=== PATIENT | female | born 1990 | race Caucasian/White ===

== ENCOUNTER 2019-07-26 12:22 | Emergency (ER) | payer OTHER, SELFPAY ==
--- NOTE | 2019-07-26 12:44 | ED.GENADULT ---
HPI - General Adult General Chief complaint: Extremity Injury, Lower Stated complaint: R/foot pain Time Seen by Provider: 07/26/19 12:55 Source: patient Mode of arrival: ambulatory Limitations: no limitations History of Present Illness HPI narrative: 28-year-old female patient presents to the [facility] with complaints of right foot pain. Patient states she does have chronic issues with her feet including neuropathy and plantar fasciitis. Patient states that about noon today she was bending down putting her son shoes on when she started feeling a burning pain to the right sole of the foot with some pulling. Patient states that she did take some Tylenol for the pain. Patient states that she does normally does wear inserts for her plantar fasciitis but did not wear them today. Patient states that she does feel like there is some pulling going up the calf as well. Patient states that she thinks that this is most likely her plantar fasciitis but is needing a work note for work today. Related Data Home Medications Medication Instructions Recorded Confirmed No Home Medications 07/26/19 07/26/19 Allergies Allergy/AdvReac Type Severity Reaction Status Date / Time No Known Allergies Allergy Verified 07/26/19 12:54 Review of Systems Review of Systems: Narrative: CONSTITUTIONAL: Denies fever, chills, or sweats. EYES: Denies visual changes, redness, or discharge. ENT: Denies rhinorrhea, congestion, sore throat, or otalgia. CARDIOVASCULAR: Denies chest pain, palpitations, or edema. RESPIRATORY: Denies cough or dyspnea. GASTROINTESTINAL: Denies abdominal pain, nausea, vomiting, or diarrhea. GENITOURINARY: Denies dysuria or hematuria. SKIN: Denies rash or itching. MUSCULOSKELETAL: Denies back pain, joint pain, or myalgia. Positive right foot pain NEUROLOGIC: Denies headache, numbness, or weakness. PSYCHIATRIC: Denies anxiety or depression. PMFSH Comments At the time of my signature I agree with nursing past medical history, surgical, social, and family history. There is no relevant family history pertinent to the presenting complaint. Exam Narrative: Exam Narrative: GENERAL: Well-appearing, well-nourished, and in no acute distress. HEAD: Normocephalic, atraumatic. EYES: PERRLA and EOMI. ENT: Nares clear, no rhinorrhea or epistaxis. Mucous membranes moist. NECK: Supple. No lymphadenopathy CHEST: Clear to auscultation. No respiratory distress. HEART: Regular rate and rhythm. No murmur heard. Normal peripheral pulses. ABDOMEN: Soft, nontender, nondistended, normal active bowel sounds. EXTREMITIES: Patient able to bear weight and ambulate but has increase in pain to the sole of the right foot. No surface trauma, since, erythema, lesions, ulcers or break in skin integrity. The R foot is without obvious asymmetry or deformity when compared to the L foot. No bony step-off, tender to palpation over the middle sole and heel. Normal plantar/dorsiflexion, inversion/eversion. Distal motor and neurovascular status are intact SKIN: Warm, dry, no rash. NEURO: No focal deficits. Alert and oriented x3. Course Vital Signs Vital signs: Vital Signs Temperature 36.8 C 07/26/19 12:56 Pulse Rate 80 07/26/19 12:56 Respiratory Rate 20 07/26/19 12:56 Blood Pressure 127/73 07/26/19 12:56 Pulse Oximetry 97 07/26/19 12:56 Temperature 36.8 C 07/26/19 12:56 Pulse Rate 80 07/26/19 12:56 Respiratory Rate 20 07/26/19 12:56 Blood Pressure 127/73 07/26/19 12:56 Pulse Oximetry 97 07/26/19 12:56 Vital signs reviewed. Medical Decision Making Differential Diagnosis Differential Diagnosis: Differential diagnosis: Foot fracture, crush injury, compartment syndrome, contusion, sprain, tendinitis,lisfranc sprain or fracture, avulsion fracture, grown toenail, diabetic ulcer. Discussed with patient most likely this is some type of flareup of her plantar fasciitis or possibly her neuropathy. Discussed with patient she can contin
[2019-07-26 12:56] VITALS: BP 127/73; PULSE 80; RESP 20; TEMP 36.8; O2SAT 97
== END 2019-07-26 13:13 | disposition home or self-care (01) ==
PROVIDERS: Emergency Provider Nurse Practitioner Family
DX: M72.2 Plantar fascial fibromatosis (principal); G62.9 Polyneuropathy, unspecified
CPT/HCPCS: 99201; G0463